=== PATIENT | female | born 2000 | race Caucasian/White ===

== ENCOUNTER 2020-01-12 14:03 | Emergency (ER) | payer OTHER ==
[2020-01-12] MEDS ORDERED: METHYLPREDNISOLONE INJ 125 MG/2 ML SDV IV ONE (14:06)
[2020-01-12] MEDS ORDERED: DIPHENHYDRAMINE HCL 50 MG/ML VIAL IV ONE (14:06)
[2020-01-12] MEDS ORDERED: EPINEPHRINE INJ/PF 1 MG/1 ML AMPULE IM ONE (14:06)
[2020-01-12] MEDS ORDERED: FAMOTIDINE INJ/PF 20 MG/2 ML SDV IV ONE (14:06)
--- NOTE | 2020-01-12 14:11 | ER Document Report ---
ED Medical Screen (RME) - General Chief Complaint: Allergic Reaction Stated Complaint: POSSIBLE ALLERGIC REACTION Time Seen by Provider: 01/12/20 14:06 Mode of Arrival: Ambulatory Information source: Patient Notes: 19-year-old female presented ED for allergic reaction. She does have swelling to the tongue and lips. She states she woke up this way. Says it does feel like it is getting more difficult to breathe. I have ordered epinephrine Solu- Medrol Benadryl and Pepcid have also ordered EKG monitoring chest x-ray. She states the last time she had symptoms like this it was because she had some sulfa medications. She states she has not had any so for that she knows of. She states it is getting more difficult to breathe. She has been sent to a room stat with orders for medications. Is able to answer questions in full sentences at this time. I have greeted and performed a rapid initial assessment of this patient. A comprehensive ED assessment and evaluation of the patient, analysis of test results and completion of medical decision making process will be conducted by an additional ED providers.
--- NOTE | 2020-01-12 14:26 | ER Document Report ---
ED General - General Chief Complaint: Allergic Reaction Stated Complaint: POSSIBLE ALLERGIC REACTION Time Seen by Provider: 01/12/20 14:06 Mode of Arrival: Ambulatory Notes: Patient is a 19-year-old white female with no significant past medical history who presents to the emergency department the chief complaint of swelling of the lower lips and tightness in the throat that began an hour ago. 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 She states when she woke she noticed her lower lip was swollen and thought maybe she bit it in her sleep. She states after further examination there is no pain and no evidence of bite. She states she started to feel a little bit of a tickle or tightness in the throat as well. She states the last time she had any sensations like this she had taken sulfa antibiotics it caused a allergic reaction. She denies any difficulty swallowing or breathing. States that she does not feel like her tongue is swollen. She denies any shortness of breath. No rash or extremity swelling. No fevers or headache. No visual disturbances. No loss of consciousness. Patient has never been intubated for anything similar. She is speaking in full sentences without difficulty. - Related Data Allergies/Adverse Reactions: Sulfa (Sulfonamide Antibiotics) Allergy (Verified 01/12/20 14:17) Past Medical History - General Information source: Patient - Social History Smoking Status: Unknown if Ever Smoked Family History: Reviewed & Not Pertinent Review of Systems - Review of Systems Constitutional: denies: Fever EENT: denies: Sinus discharge Cardiovascular: denies: Dyspnea Respiratory: denies: Short of breath Gastrointestinal: denies: Poor appetite Genitourinary: denies: Incontinence Female Genitourinary: denies: Heavy/abnormal periods Musculoskeletal: denies: Muscle pain Skin: denies: Lesions Hematologic/Lymphatic: denies: Easy bruising Neurological/Psychological: denies: Paralysis Physical Exam - Vital signs Vitals: Temp Pulse Resp BP Pulse Ox 98.2 F 100 16 108/72 99 01/12/20 14:10 01/12/20 14:10 01/12/20 14:10 01/12/20 14:10 01/12/20 14:10 - General General appearance: Appears well, Alert In distress: None - HEENT Head: Normocephalic, Atraumatic Eyes: Normal Conjunctiva: Normal Extraocular movements intact: Yes Ears: Normal External canal: Normal Tympanic membrane: Normal Mouth/Lips: Other - Slight edema of the lower lip compared with upper. No tongue swelling. Pharynx: Other - Normal phonation , patent airway. Handling secretions well. No sublingual or submental swelling. No trismus. Neck: Normal, Supple - Respiratory Respiratory status: No respiratory distress Chest status: Nontender Breath sounds: Normal Chest palpation: Normal - Cardiovascular Rhythm: Regular Heart sounds: Normal auscultation - Extremities General upper extremity: No: Edema General lower extremity: No: Edema - Neurological Neuro grossly intact: Yes Cognition: Normal Orientation: AAOx4 - Psychological Associated symptoms: Normal affect, Normal mood - Skin Skin Temperature: Warm Skin Moisture: Dry Skin irregularity: negative: Rash Course - Re-evaluation Re-evalutation: 01/12/20 16:45 Patient reevaluated x2 during her stay today, most recent evaluation at this time shows her to be resting comfortably in the room. She is phonating normally, airway remains patent. She is not drooling. No obvious tongue swelling. No trismus or submental edema. Breath sounds are clear throughout. She was given Solu-Medrol, Benadryl and Pepcid. Rapid strep was negative. She has a history of mono. She be given a note for work tonight sent home with this course of steroids and we discussed continuing Pepcid and Benadryl per label instructions [id number]. Will prescribe EpiPen's as needed in an acute life-threatening situation as we discussed their use in the event that there is any further worsening of the sensation in her throat. Discussed with her the importance of outpatient follow-up and advised that she return here or any ER immediately with any new, persistent or worsening symptoms. She verbalized understood and agreed. - Vital Signs Vital signs: Temp Pulse Resp BP Pulse Ox 98.2 F 100 20 115/77 99 01/12/20 14:10 01/12/20 14:10 01/12/20 14:19 01/12/20 14:19 01/12/20 14:19 - Laboratory Result Diagrams: 01/12/20 14:30 01/12/20 14:30 Laboratory results interpreted by me: 01/12/20 14:30 Lymph % (Auto) 6.9 L Seg Neutrophils % 88.6 H Discharge - Discharge Clinical Impression: Throat pain Allergic reaction Qualifiers: Encounter type: initial encounter Qualified Code(s): T78.40XA - Allergy, unspecified, initial encounter Condition: Stable Disposition: HOME, SELF-CARE Instructions: Sore Throat ([facility]), Acute Allergic Reaction ([facility]) Additional Instructions: Follow-up with your regular doctor in 2 to 3 days for reevaluation. Return here or any ER immediately with any new, persistent or worsening symptoms. Prescriptions: Prednisone [Deltasone 20 mg Tablet] 40 mg PO DAILY 21 Days #10 tablet Epinephrine [Epipen 2-Mark] 0.3 mg IM ASDIR PRN #1 packet PRN Reason: Forms: Return to Work Referrals: [facility] [NO LOCAL MD] - Follow up as needed
[2020-01-12 14:43] VITALS: BP 115/77
[2020-01-12 14:57] LABS: ABSOLUTE LYMPHOCYTES (AUTO) 0.6 10^3/uL (0.5-4.7); ABSOLUTE MONOCYTES (AUTO) 0.4 10^3/uL (0.1-1.4); ABSOLUTE NEUT (AUTO) 7.7 10^3/uL (1.7-8.2); BASOPHILS % (AUTO) 0.1 % (0-2); HEMATOCRIT 43.1 % (36.0-47.0); HEMOGLOBIN 14.9 g/dL (12.0-15.5); LYMPHOCYTES % (AUTO) 6.9 % (13-45); MEAN CORPUSCULAR HEMOGLOBIN 29.9 pg (27.0-33.4); MEAN CORPUSCULAR HGB CONC 34.6 g/dL (32.0-36.0); MEAN CORPUSCULAR VOLUME 87 fl (80-97); MONOCYTES % (AUTO) 4.4 % (3-13); PLATELET COUNT 163 10^3/uL (150-450); RED BLOOD COUNT 4.97 10^6/uL (3.72-5.28); RED CELL DISTRIBUTION WIDTH 12.7 % (11.5-14.0); SEGMENTED NEUTROPHILS % (AUTO) 88.6 % (42-78); TOTAL CELLS COUNTED % (AUTO) 100 %; WHITE BLOOD COUNT 8.7 10^3/uL (4.0-10.5)
[2020-01-12 15:11] LABS: ALBUMIN 4.6 g/dL (3.5-5.0); ALKALINE PHOSPHATASE 64 U/L (38-126); ANION GAP 11 (5-19); ASPARTATE AMINO TRANSFERASE 22 U/L (14-36); BILIRUBIN,DIRECT 0.2 mg/dL (0.0-0.4); BILIRUBIN,TOTAL 0.9 mg/dL (0.2-1.3); BLOOD UREA NITROGEN 11 mg/dL (7-20); CARBON DIOXIDE 25 mmol/L (22-30); CHLORIDE 102 mmol/L (98-107); GLUCOSE 91 mg/dL (75-110); TOTAL PROTEIN 7.2 g/dL (6.3-8.2)
--- NOTE | 2020-01-12 15:20 | RADIOLOGY REPORT (SQ) ---
EXAM DESCRIPTION: CHEST 2 VIEWS IMAGES COMPLETED DATE/TIME: 01/12/2020 3:00 pm REASON FOR STUDY: SHORT of breath due to allergic reaction COMPARISON: None. TECHNIQUE: Frontal and lateral radiographic views of the chest acquired. NUMBER OF VIEWS: Two view. LIMITATIONS: None. FINDINGS: LUNGS AND PLEURA: No opacities, masses or pneumothorax. No pleural effusion. MEDIASTINUM AND HILAR STRUCTURES: No masses or contour abnormalities. HEART AND VASCULAR STRUCTURES: Heart normal size. No evidence for failure. BONES: No acute findings. HARDWARE: None in the chest. OTHER: No other significant finding. IMPRESSION: NO SIGNIFICANT RADIOGRAPHIC FINDING IN THE CHEST. TECHNICAL DOCUMENTATION: JOB ID: [id number] 2010 [employer]- All Rights Reserved Reading location - IP/workstation name: [email or web address]
--- NOTE | 2020-01-12 20:18 | EKG REPORT ---
SEVERITY:- ABNORMAL ECG - SINUS RHYTHM LEFT POSTERIOR FASCICULAR BLOCK : Confirmed by: Atilio Avalos MD 12-Jan-2020 20:18:27
== END 2020-01-12 17:27 | disposition home or self-care (01) ==
LOC: ER 14:03
DX: T78.40XA Allergy, unspecified, initial encounter (principal); R07.0 Pain in throat; R22.0 Localized swelling, mass and lump, head; Z88.2 Allergy status to sulfonamides
CPT/HCPCS: 93005; 99285; 96372; 96374; 96375; 36415; 87070; 87880; 84703; 85025; 87077; 80053; 71046; 93010; J1200; J2930; S0028